=== PATIENT | male | born 1965 | race Hispanic/Latino ===

== ENCOUNTER 2017-09-17 10:22 | Inpatient (IN) | payer OTHER ==
[~2017-09-17] VITALS: Ht 182.9 cm; Wt 104.1 kg
[~2017-09-17 10:22] MED LIST: ACET1TAB25 PO; AMLO10TA2 PO; ATOR10TA69 PO; BUME2TAB18 PO; CARV6.25 PO; CHOL100046 PO; CLIN300C9 PO; FLUT9.9S NS; GLIP5TAB11 PO; INSU100I26 SQ; INSU3INS5 SQ; ISOS30TA6 PO; PRAS10TA6 PO; PREG50 PO; TAMS0.4C32 PO; VIT1CAPS12 PO; VIT1TABL66 PO; VIT1TABL75 PO
[2017-09-17 10:46] LABS: BASOPHILS % (AUTO) 1.1 % (0.0-5.0); EOSINOPHILS % (AUTO) 1.1 % (0.0-8.0); HEMATOCRIT 36.8 % (42-54); MEAN CORPUSCULAR HEMOGLOBIN 26.4 pg (27.0-33.0); MEAN CORPUSCULAR HGB CONC 33.3 g/dL (32.0-36.0); MEAN CORPUSCULAR VOLUME 79.2 fL (79-99); MONOCYTES % (AUTO) 8.4 % (3.0-13.0); NEUTROPHILS % (AUTO) 83.4 % (40.0-77.0); PLATELET COUNT (AUTO) 243 K/uL (130-400); RED BLOOD CELL COUNT(AUTO) 4.64 MIL/uL (4.50-6.20); RED CELL DISTRIBUTION WIDTH 14.7 % (11.0-15.5); WHITE BLOOD COUNT (AUTO) 18.1 K/uL (4.8-10.8)
[2017-09-17 10:54] LABS: CREATININE 3.3 mg/dL (0.5-1.5); POTASSIUM 5.1 mmol/L (3.5-5.1)
[2017-09-17 11:09] LABS: ALBUMIN 3.1 g/dL (3.5-5.0); BILIRUBIN,TOTAL 0.6 mg/dL (0.2-1.0); CREATINE KINASE MB 3.8 ng/mL (0.5-3.6)
[2017-09-17 11:46] LABS: APPEARANCE,URINE Clear (CLEAR); BILIRUBIN,URINE Negative (NEGATIVE); COLOR,URINE Yellow (YELLOW); GLUCOSE, URINE (UA) >=1000 mg/dL (NEGATIVE); KETONES,URINE Negative (NEGATIVE); LEUKOCYTE ESTERASE ,URINE Negative (NEGATIVE); NITRATE,URINE Negative (NEGATIVE); OCCULT BLOOD,URINE Small (NEGATIVE); PROTEIN,URINE 300 (NEGATIVE); UROBILINOGEN,URINE 0.2 mg/dL (0.2-1.0)
[2017-09-17 12:04] LABS: BACTERIA,URINE Rare /HPF (None Seen); SQUAMOUS EPITHELIAL CELL,UR 0-2 /LPF (0-2)
[2017-09-17 12:06] LABS: WBC,URINE 0-1 /HPF (0-1)
[2017-09-17 12:40] LABS: INR 1.05 (0.85-1.15); PARTIAL THROMBOPLASTIN TIME 26.2 SEC (26.3-35.5)
[2017-09-17 13:50] VITALS: BP 141/97
[2017-09-17] MEDS ORDERED: GLIP5TAB11 PO (14:19)
[2017-09-17] MEDS ORDERED: ASPI-555 PO (14:21)
[2017-09-17] MEDS ORDERED: HYDR-4153 PO (14:26)
[2017-09-17] MEDS ORDERED: CHOL500050 PO (14:27)
[2017-09-17] MEDS ORDERED: INSU200I4 SQ (14:32)
[2017-09-17] MEDS ORDERED: RANO500T2 PO (14:33)
[2017-09-17] MEDS ORDERED: METO5TAB7 PO (14:34)
[2017-09-17 16:00] VITALS: BP 146/97
[2017-09-17 18:58] LABS: CREATINE KINASE MB 3.3 ng/mL (0.5-3.6); TROPONIN I 0.2 ng/mL (0.00-0.06)
[2017-09-17] MEDS ORDERED: ONDANSETRON HCL 4 MG/2 ML VIAL IVP PRN (19:45)
[2017-09-17] MEDS ORDERED: LACTULOSE 20 GM/30 ML UDCUP PO PRN (19:45)
[2017-09-17] MEDS ORDERED: ACETAMINOPHEN 325 MG TAB PO PRN ×2 (19:45)
[2017-09-17] MEDS ORDERED: GUAIFENESIN-DM 200/20 MG 10 ML PO PRN (19:45)
[2017-09-17] MEDS ORDERED: MORPHINE SULFATE 2 MG/ML 1ML SYG IVP PRN (19:45)
[2017-09-17] MEDS ORDERED: NITROGLYCERIN 0.4 MG SL TAB SL PRN (19:45)
[2017-09-17] MEDS ORDERED: MAG HYDROX/AL HYDROX/SIMETH ES 30 ML SUSP UDCUP PO PRN (19:45)
[2017-09-17 19:50] VITALS: BP 162/92
[2017-09-17] MEDS ORDERED: FUROSEMIDE 10 MG/ML 4ML VIAL IV SCH ×2 (20:45→21:00)
[2017-09-17] MEDS ORDERED: METOPROLOL TARTRATE 25 MG TAB PO SCH (21:00)
[2017-09-17] MEDS: INSULIN HUMULIN R 100 UNIT/ML 3ML SQ SCH (21:02)
[2017-09-17] MEDS: NITROGLYCERIN 1GM/1 INCH PACKET TD SCH (21:03)
[2017-09-18] VITALS: BP 132/72
[2017-09-18 03:55] LABS: HEMOGLOBIN A1C 9.8 % (4.0-6.0)
[2017-09-18 03:58] LABS: HEMATOCRIT 32.4 % (42-54); MEAN CORPUSCULAR HEMOGLOBIN 27.1 pg (27.0-33.0); MEAN CORPUSCULAR HGB CONC 33.9 g/dL (32.0-36.0); MEAN CORPUSCULAR VOLUME 79.8 fL (79-99); PLATELET COUNT (AUTO) 223 K/uL (130-400); RED BLOOD CELL COUNT(AUTO) 4.06 MIL/uL (4.50-6.20); RED CELL DISTRIBUTION WIDTH 14.8 % (11.0-15.5); WHITE BLOOD COUNT (AUTO) 13.7 K/uL (4.8-10.8)
[2017-09-18 04:00] VITALS: BP 149/90
[2017-09-18 04:11] LABS: CREATINE KINASE MB 2.6 ng/mL (0.5-3.6); CREATININE 3.4 mg/dL (0.5-1.5); POTASSIUM 4.1 mmol/L (3.5-5.1); THYROID STIMULATING HORMONE 2.64 uIU/mL (0.36-3.74); TROPONIN I 0.26 ng/mL (0.00-0.06)
[2017-09-18 04:13] LABS: B-TYPE NATRIURETIC PEPTIDE 716 pg/mL (0-100)
[2017-09-18] MEDS: NITROGLYCERIN 1GM/1 INCH PACKET TD SCH ×3 (05:05→22:20)
[2017-09-18] MEDS: INSULIN HUMULIN R 100 UNIT/ML 3ML SQ SCH ×4 (06:26→22:24)
[2017-09-18 07:43] VITALS: BP 138/73
[2017-09-18] MEDS ORDERED: FUROSEMIDE 10 MG/ML 4ML VIAL IV SCH ×2 (08:00→09:00)
[2017-09-18] MEDS ORDERED: ASPIRIN 325 MG TABLET PO SCH (09:00)
[2017-09-18] MEDS: PANTOPRAZOLE SODIUM 40 MG TABLET.DR PO SCH (09:42)
[2017-09-18] MEDS: ENOXAPARIN SODIUM 30 MG/0.3 ML SQ SCH (09:43)
[2017-09-18] MEDS: FUROSEMIDE 10 MG/ML 4ML VIAL IV SCH ×2 (09:53→16:50)
[2017-09-18 11:49] VITALS: BP 160/91
[2017-09-18] MEDS: PREGABALIN 25 MG CAP PO SCH ×2 (14:09→22:17)
[2017-09-18 16:00] VITALS: BP 145/85
[2017-09-18 20:00] VITALS: BP 148/97
[2017-09-18] MEDS ORDERED: ATORVASTATIN CALCIUM 10 MG TABLET PO SCH (21:00)
[2017-09-18] MEDS: RANOLAZINE 500 MG TAB.SR.12H PO SCH (22:17)
[2017-09-18] MEDS: TAMSULOSIN HCL 0.4 MG CAP.ER.24H PO SCH (22:17)
[2017-09-18] MEDS: CARVEDILOL 6.25 MG TABLET PO SCH (22:21)
[2017-09-18] MEDS: HYDRALAZINE HCL 25 MG TABLET PO SCH (22:21)
[2017-09-19 00:21] VITALS: BP 149/93
[2017-09-19 04:10] VITALS: BP 140/80
[2017-09-19] MEDS: NITROGLYCERIN 1GM/1 INCH PACKET TD SCH ×2 (04:15→14:17)
[2017-09-19] MEDS: FUROSEMIDE 10 MG/ML 4ML VIAL IV SCH ×2 (04:31→09:45)
[2017-09-19 04:55] LABS: HEMATOCRIT 32.6 % (42-54); MEAN CORPUSCULAR HEMOGLOBIN 27.2 pg (27.0-33.0); MEAN CORPUSCULAR HGB CONC 34.5 g/dL (32.0-36.0); MEAN CORPUSCULAR VOLUME 78.7 fL (79-99); PLATELET COUNT (AUTO) 235 K/uL (130-400); RED BLOOD CELL COUNT(AUTO) 4.14 MIL/uL (4.50-6.20); RED CELL DISTRIBUTION WIDTH 14.5 % (11.0-15.5); WHITE BLOOD COUNT (AUTO) 11.7 K/uL (4.8-10.8)
[2017-09-19 05:10] LABS: CREATININE 3.8 mg/dL (0.5-1.5); POTASSIUM 3.9 mmol/L (3.5-5.1)
[2017-09-19 05:20] LABS: B-TYPE NATRIURETIC PEPTIDE 259 pg/mL (0-100)
[2017-09-19] MEDS: INSULIN HUMULIN R 100 UNIT/ML 3ML SQ SCH ×2 (06:27→11:34)
[2017-09-19 07:00] VITALS: BP 108/67
[2017-09-19] MEDS ORDERED: CLOPIDOGREL BISULFATE 75 MG TAB PO SCH (09:00)
[2017-09-19] MEDS ORDERED: METOLAZONE 2.5 MG TABLET PO SCH (09:00)
[2017-09-19] MEDS ORDERED: [UNRECOGNIZED DRUG - OTHER] PO SCH (09:00)
[2017-09-19] MEDS ORDERED: AMLODIPINE BESYLATE 5 MG TAB PO SCH (09:00)
[2017-09-19] MEDS ORDERED: ASPIRIN 81 MG EC TAB PO SCH (09:00)
[2017-09-19] MEDS ORDERED: PRASUGREL HCL 10 MG TABLET PO SCH (09:00)
[2017-09-19] MEDS ORDERED: [UNRECOGNIZED DRUG - OTHER] PO SCH (09:00)
[2017-09-19] MEDS ORDERED: TRESIBA U PO SCH (09:00)
[2017-09-19] MEDS ORDERED: GLIPIZIDE 5 MG TABLET PO SCH (09:00)
[2017-09-19] MEDS: RANOLAZINE 500 MG TAB.SR.12H PO SCH (10:51)
[2017-09-19] MEDS: TAMSULOSIN HCL 0.4 MG CAP.ER.24H PO SCH (10:51)
[2017-09-19] MEDS: FUROSEMIDE 40 MG TABLET PO SCH ×2 (10:52→17:00)
[2017-09-19] MEDS: CARVEDILOL 6.25 MG TABLET PO SCH (10:52)
[2017-09-19] MEDS: PANTOPRAZOLE SODIUM 40 MG TABLET.DR PO SCH (10:52)
[2017-09-19] MEDS: PREGABALIN 25 MG CAP PO SCH ×2 (10:53→14:17)
[2017-09-19] MEDS: ENOXAPARIN SODIUM 30 MG/0.3 ML SQ SCH (10:53)
[2017-09-19] MEDS: HYDRALAZINE HCL 25 MG TABLET PO SCH (10:54)
[2017-09-19 11:00] VITALS: BP 132/82
[2017-09-19] MEDS ORDERED: FURO40TA7 PO (14:44)
[2017-09-19] MEDS ORDERED: HYDR-4153 PO (14:44)
[2017-09-19] MEDS ORDERED: CARV6.25 PO (14:44)
[2017-09-19] MEDS ORDERED: ATOR10TA69 PO (14:44)
[2017-09-19] MEDS ORDERED: METO5TAB7 PO (14:44)
[2017-09-19] MEDS ORDERED: RANO500T2 PO (14:44)
[2017-09-19] MEDS ORDERED: AMLO10TA2 PO (14:44)
[2017-09-19] MEDS ORDERED: CLOP75TA14 PO (14:44)
[2017-09-19 16:00] VITALS: BP 133/89
[2017-09-25] MEDS ORDERED: ERGOCALCIFEROL (VITAMIN D2) 50,000 UNIT CAPSULE PO SCH (09:00)
== END 2017-09-19 17:20 | disposition home or self-care (01) | DRG 291 ==
LOC: EDH 10:22 → EDHIP 10:23 → OBSVTOIN 10:23 → 2AH 13:29
PROVIDERS: ADMIT Family Medicine; ATTEND Family Medicine
DX: I13.0 Hypertensive heart and chronic kidney disease with heart failure and stage 1 through stage 4 chronic kidney disease, or unspecified chronic kidney disease (principal); I50.43 Acute on chronic combined systolic (congestive) and diastolic (congestive) heart failure; E11.21 Type 2 diabetes mellitus with diabetic nephropathy; E11.51 Type 2 diabetes mellitus with diabetic peripheral angiopathy without gangrene; N18.4 Chronic kidney disease, stage 4 (severe); I25.10 Atherosclerotic heart disease of native coronary artery without angina pectoris; E78.5 Hyperlipidemia, unspecified; D64.9 Anemia, unspecified; E11.22 Type 2 diabetes mellitus with diabetic chronic kidney disease; I25.5 Ischemic cardiomyopathy; E11.65 Type 2 diabetes mellitus with hyperglycemia; Z95.810 Presence of automatic (implantable) cardiac defibrillator; I25.2 Old myocardial infarction; Z95.1 Presence of aortocoronary bypass graft; Z90.49 Acquired absence of other specified parts of digestive tract; Z91.14 Patient's other noncompliance with medication regimen
CPT/HCPCS: 36415; 71010; 80048; 80053; 81001; 82550; 82553; 82948; 83036; 83874; 83880; 84443; 84484; 85025; 85027; 85610; 85730; 93005; 99291; J1650; J1815; J1940; J3490

== ENCOUNTER 2018-06-21 17:56 | Inpatient (IN) | payer OTHER ==
[~2018-06-21] VITALS: Ht 180.3 cm; Wt 101.5 kg
[~2018-06-21 17:56] MED LIST changes: -AMLO10TA2 PO; +AMLO10TA6 PO; +ASPI-555 PO; -BUME2TAB18 PO; -CHOL100046 PO; +CHOL500050 PO; -CLIN300C9 PO; +CLOP75TA14 PO; -FLUT9.9S NS; +FURO40TA7 PO; +HYDR-4153 PO; -INSU100I26 SQ; +INSU200I4 SQ; -ISOS30TA6 PO; +METO5TAB7 PO; -PRAS10TA6 PO; +RANO500T2 PO; -VIT1TABL66 PO
[2018-06-21 18:25] LABS: BASOPHILS % (AUTO) 0.5 % (0.0-5.0); EOSINOPHILS % (AUTO) 1.5 % (0.0-8.0); HEMATOCRIT 34.2 % (42-54); LYMPHOCYTES % (AUTO) 9.9 % (21.0-51.0); MEAN CORPUSCULAR HEMOGLOBIN 27.6 pg (27.0-33.0); MEAN CORPUSCULAR HGB CONC 33.7 g/dL (32.0-36.0); MONOCYTES % (AUTO) 6.3 % (3.0-13.0); NEUTROPHILS % (AUTO) 81.8 % (40.0-77.0); PLATELET COUNT (AUTO) 206 K/uL (130-400); RED BLOOD CELL COUNT(AUTO) 4.17 MIL/uL (4.50-6.20); RED CELL DISTRIBUTION WIDTH 15.4 % (11.0-15.5); WHITE BLOOD COUNT (AUTO) 9.9 K/uL (4.8-10.8)
[2018-06-21] MEDS ORDERED: ASPIRIN 325 MG TABLET ONE (18:33)
[2018-06-21 18:40] LABS: INR 1.07 (0.85-1.15); PARTIAL THROMBOPLASTIN TIME 27.5 SEC (26.3-35.5); PROTHROMBIN TIME 11.2 SEC (9.6-11.6)
[2018-06-21 18:50] LABS: ALBUMIN 3.3 g/dL (3.5-5.0); BILIRUBIN,TOTAL 0.3 mg/dL (0.2-1.0); CREATININE 5.3 mg/dL (0.5-1.5); POTASSIUM 3.9 mmol/L (3.5-5.1); TOTAL PROTEIN, SERUM 8.2 g/dL (6.0-8.3)
[2018-06-21 18:58] LABS: B-TYPE NATRIURETIC PEPTIDE 390 pg/mL (0-100)
[2018-06-21] MEDS ORDERED: ENOXAPARIN SODIUM 100 MG/1 ML SQ ONE (19:28)
[2018-06-21] MEDS ORDERED: MORPHINE SULFATE 2 MG/ML 1ML SYG IV PRN (21:30)
[2018-06-21] MEDS ORDERED: NITROGLYCERIN 0.4 MG SL TAB SL PRN (21:30)
[2018-06-21] MEDS ORDERED: GLUCAGON 1MG KIT 1 MG ML IM PRN (21:30)
[2018-06-21] MEDS ORDERED: DEXTROSE 50%-WATER 50 ML DISP.SYRIN IV PRN (21:30)
[2018-06-21] MEDS ORDERED: MORPHINE SULFATE 4 MG/1ML SYG IV PRN (21:30)
[2018-06-21 22:46] VITALS: BP 138/84
[2018-06-22 00:49] LABS: MYOGLOBIN 563 ng/mL (10-92)
[2018-06-22 00:52] LABS: CREATINE KINASE, TOTAL 419 U/L (21-232)
[2018-06-22 03:50] VITALS: BP 142/64
[2018-06-22] MEDS: SODIUM CHLORIDE 0.9% 1000ML 1,000 ML IV SCH ×2 (04:22→07:24)
[2018-06-22] MEDS: INSULIN HUMULIN R 100 UNIT/ML 3ML SQ SCH ×4 (06:05→21:54)
[2018-06-22 06:23] LABS: BASOPHILS % (AUTO) 0.8 % (0.0-5.0); EOSINOPHILS % (AUTO) 2.7 % (0.0-8.0); HEMATOCRIT 35.2 % (42-54); LYMPHOCYTES % (AUTO) 17.9 % (21.0-51.0); MEAN CORPUSCULAR HEMOGLOBIN 27.8 pg (27.0-33.0); MEAN CORPUSCULAR HGB CONC 33.7 g/dL (32.0-36.0); MEAN CORPUSCULAR VOLUME 82.4 fL (79-99); MONOCYTES % (AUTO) 10.3 % (3.0-13.0); NEUTROPHILS % (AUTO) 68.3 % (40.0-77.0); PLATELET COUNT (AUTO) 233 K/uL (130-400); RED BLOOD CELL COUNT(AUTO) 4.27 MIL/uL (4.50-6.20); RED CELL DISTRIBUTION WIDTH 15.3 % (11.0-15.5); WHITE BLOOD COUNT (AUTO) 11.7 K/uL (4.8-10.8)
[2018-06-22 06:31] LABS: HEMOGLOBIN A1C 9.1 % (4.0-6.0)
[2018-06-22 06:59] LABS: B-TYPE NATRIURETIC PEPTIDE 435 pg/mL (0-100)
[2018-06-22 07:01] LABS: ALBUMIN 3.3 g/dL (3.5-5.0); BILIRUBIN,TOTAL 0.3 mg/dL (0.2-1.0); CREATININE 5.1 mg/dL (0.5-1.5); MAGNESIUM 2.1 mg/dL (1.80-2.40); POTASSIUM 3.8 mmol/L (3.5-5.1); TOTAL PROTEIN, SERUM 8.3 g/dL (6.0-8.3)
[2018-06-22 07:05] LABS: TROPONIN I 3.56 ng/mL (0.00-0.06)
[2018-06-22 08:17] VITALS: BP 142/82
[2018-06-22] MEDS ORDERED: METOPROLOL TARTRATE 25 MG TAB PO SCH (09:00)
[2018-06-22] MEDS ORDERED: ENOXAPARIN SODIUM 40 MG/0.4 ML SYRINGE SQ SCH ×2 (09:00)
[2018-06-22] MEDS: ASPIRIN 81MG TAB.CHEW PO SCH (09:08)
[2018-06-22] MEDS: PANTOPRAZOLE SODIUM 40 MG TABLET.DR PO SCH (09:08)
[2018-06-22] MEDS: FUROSEMIDE 10 MG/ML 4ML VIAL IVP SCH ×2 (09:09→21:38)
[2018-06-22] MEDS ORDERED: ENOXAPARIN SODIUM 100 MG/1 ML SQ SCH (09:09)
[2018-06-22] MEDS ORDERED: CARV12.511 PO (09:31)
[2018-06-22] MEDS ORDERED: CALC0.253 PO (09:31)
[2018-06-22] MEDS ORDERED: ATOR-2 PO (09:31)
[2018-06-22] MEDS ORDERED: METO5TAB7 PO (09:31)
[2018-06-22] MEDS ORDERED: ISOS30TA6 PO (09:31)
[2018-06-22] MEDS ORDERED: CHOL100040 PO (09:31)
[2018-06-22] MEDS ORDERED: VITA400C70 PO (09:31)
[2018-06-22] MEDS ORDERED: BUME2TAB18 PO (09:31)
[2018-06-22] MEDS ORDERED: CALC667C10 PO (09:31)
[2018-06-22] MEDS ORDERED: VIT-7 PO (09:31)
[2018-06-22] MEDS ORDERED: FERS325 PO (10:05)
[2018-06-22] MEDS ORDERED: PREG150C PO (10:06)
[2018-06-22] MEDS ORDERED: INSU100I32 SQ (10:10)
[2018-06-22] MEDS ORDERED: CLOPIDOGREL BISULFATE 300 MG TAB PO SCH (11:30)
[2018-06-22] MEDS: CARVEDILOL 12.5 MG TABLET PO SCH ×2 (11:53→21:38)
[2018-06-22] MEDS ORDERED: INSU3INS5 SQ (11:55)
[2018-06-22 11:58] VITALS: BP 139/79
[2018-06-22 16:00] VITALS: BP 131/85
[2018-06-22 19:29] VITALS: BP 146/93
[2018-06-22] MEDS: ACETAMINOPHEN 325 MG TAB PO PRN (21:40)
[2018-06-22 23:27] VITALS: BP 162/96
[2018-06-23] VITALS (13 sets, daily range): BP systolic 135–160; BP diastolic 83–101
[2018-06-23] MEDS: ONDANSETRON HCL MDV 20ML 2 MG/ML VIAL IV PRN (00:37)
[2018-06-23 03:40] LABS: HEMATOCRIT 32.6 % (42-54); MEAN CORPUSCULAR HEMOGLOBIN 27.8 pg (27.0-33.0); MEAN CORPUSCULAR HGB CONC 34.2 g/dL (32.0-36.0); MEAN CORPUSCULAR VOLUME 81.3 fL (79-99); PLATELET COUNT (AUTO) 209 K/uL (130-400); RED BLOOD CELL COUNT(AUTO) 4.01 MIL/uL (4.50-6.20); RED CELL DISTRIBUTION WIDTH 15.1 % (11.0-15.5); WHITE BLOOD COUNT (AUTO) 10.1 K/uL (4.8-10.8)
[2018-06-23 03:48] LABS: INR 1.07 (0.85-1.15); PROTHROMBIN TIME 11.2 SEC (9.6-11.6)
[2018-06-23 03:55] LABS: CREATININE 5.2 mg/dL (0.5-1.5); POTASSIUM 3.9 mmol/L (3.5-5.1)
[2018-06-23 03:57] LABS: URIC ACID 13.8 mg/dL (2.6-7.2)
[2018-06-23] MEDS: INSULIN HUMULIN R 100 UNIT/ML 3ML SQ SCH ×4 (07:30→22:43)
[2018-06-23] MEDS: FOLIC ACID/VITAMIN B COMP W-C 1 MG CAPSULE PO SCH (08:13)
[2018-06-23] MEDS: ENOXAPARIN SODIUM 100 MG/1 ML SQ SCH (08:13)
[2018-06-23] MEDS: CARVEDILOL 12.5 MG TABLET PO SCH ×2 (08:25→22:33)
[2018-06-23] MEDS: ASPIRIN 81MG TAB.CHEW PO SCH (08:26)
[2018-06-23] MEDS: CLOPIDOGREL BISULFATE 75 MG TAB PO SCH (08:26)
[2018-06-23] MEDS: PANTOPRAZOLE SODIUM 40 MG TABLET.DR PO SCH (09:55)
[2018-06-23] MEDS: FUROSEMIDE 10 MG/ML 4ML VIAL IVP SCH ×2 (09:55→22:34)
[2018-06-23] MEDS ORDERED: LIDOCAINE HCL 1% MDV 50ML VIAL ONE (16:02)
[2018-06-23] MEDS ORDERED: HEPARIN SODIUM 5000UNIT/ML 1ML VIAL IJ PRN (17:45)
[2018-06-23] MEDS ORDERED: ALBUMIN (HUMAN) 25% 100 ML IV PRN (17:45)
[2018-06-23] MEDS ORDERED: SODIUM CHLORIDE 0.9% 1000ML 1,000 ML IV PRN (17:45)
[2018-06-23] MEDS ORDERED: 0.9% SODIUM CHLORIDE 250 ML IV BAG IV PRN (17:45)
[2018-06-23 17:54] LABS: ALBUMIN 3.3 g/dL (3.5-5.0)
[2018-06-23] MEDS: ROPINIROLE HCL 1 MG TABLET PO SCH (21:00)
[2018-06-23] MEDS: ACETAMINOPHEN 325 MG TAB PO PRN (22:33)
[2018-06-24] MEDS ORDERED: PREGABALIN 75 MG CAPSULE ONE ×2 (00:27→22:23)
[2018-06-24] MEDS: DIAZEPAM 5 MG TABLET PO PRN ×2 (00:29→22:31)
[2018-06-24] MEDS: PREGABALIN 100 MG CAPSULE PO SCH ×2 (00:31→22:33)
[2018-06-24 03:44] LABS: HEMATOCRIT 36.3 % (42-54); MEAN CORPUSCULAR HEMOGLOBIN 28.2 pg (27.0-33.0); MEAN CORPUSCULAR HGB CONC 34.7 g/dL (32.0-36.0); MEAN CORPUSCULAR VOLUME 81.4 fL (79-99); PLATELET COUNT (AUTO) 244 K/uL (130-400); RED BLOOD CELL COUNT(AUTO) 4.46 MIL/uL (4.50-6.20); RED CELL DISTRIBUTION WIDTH 15.3 % (11.0-15.5); WHITE BLOOD COUNT (AUTO) 10.8 K/uL (4.8-10.8)
[2018-06-24 03:55] LABS: CREATININE 4.6 mg/dL (0.5-1.5); POTASSIUM 3.7 mmol/L (3.5-5.1)
[2018-06-24 04:12] VITALS: BP 115/80
[2018-06-24] MEDS: INSULIN HUMULIN R 100 UNIT/ML 3ML SQ SCH ×4 (06:25→22:50)
[2018-06-24 07:00] VITALS: BP 124/86
[2018-06-24] MEDS: CARVEDILOL 12.5 MG TABLET PO SCH ×2 (08:29→22:31)
[2018-06-24] MEDS: ASPIRIN 81MG TAB.CHEW PO SCH (08:29)
[2018-06-24] MEDS: CLOPIDOGREL BISULFATE 75 MG TAB PO SCH (08:29)
[2018-06-24] MEDS: FOLIC ACID/VITAMIN B COMP W-C 1 MG CAPSULE PO SCH (08:29)
[2018-06-24] MEDS: ENOXAPARIN SODIUM 100 MG/1 ML SQ SCH (08:30)
[2018-06-24] MEDS: PANTOPRAZOLE SODIUM 40 MG TABLET.DR PO SCH (08:30)
[2018-06-24] MEDS: FUROSEMIDE 10 MG/ML 4ML VIAL IVP SCH ×2 (08:30→22:31)
[2018-06-24 11:00] VITALS: BP 123/81
[2018-06-24 16:00] VITALS: BP 126/97
[2018-06-24] MEDS ORDERED: DESMOPRESSIN ACETATE IJ SCH (20:00)
[2018-06-24] MEDS ORDERED: SODIUM CHLORIDE 0.9% IJ SCH (20:00)
[2018-06-24 20:10] VITALS: BP 126/76
[2018-06-24] MEDS: ROPINIROLE HCL 1 MG TABLET PO SCH (22:34)
[2018-06-24] MEDS: INSULIN GLARGINE 100 UNITS/ML 10 ML VIAL SQ SCH (22:49)
[2018-06-24 23:36] VITALS: BP 129/86
[2018-06-25 03:57] VITALS: BP 130/82
[2018-06-25 03:58] LABS: HEMATOCRIT 35.4 % (42-54); MEAN CORPUSCULAR HEMOGLOBIN 27.5 pg (27.0-33.0); MEAN CORPUSCULAR HGB CONC 33.7 g/dL (32.0-36.0); MEAN CORPUSCULAR VOLUME 81.5 fL (79-99); NUCLEATED RED BLOOD CELLS 0.1 % (0.0-0.19); PLATELET COUNT (AUTO) 207 K/uL (130-400); RED BLOOD CELL COUNT(AUTO) 4.35 MIL/uL (4.50-6.20); RED CELL DISTRIBUTION WIDTH 15.4 % (11.0-15.5); WHITE BLOOD COUNT (AUTO) 13.4 K/uL (4.8-10.8)
[2018-06-25 04:08] LABS: CREATININE 4.9 mg/dL (0.5-1.5); POTASSIUM 3.7 mmol/L (3.5-5.1)
[2018-06-25] MEDS: INSULIN HUMULIN R 100 UNIT/ML 3ML SQ SCH ×4 (06:55→21:48)
[2018-06-25 07:00] VITALS: BP 109/66
[2018-06-25] MEDS: FOLIC ACID/VITAMIN B COMP W-C 1 MG CAPSULE PO SCH (07:38)
[2018-06-25] MEDS: CLOPIDOGREL BISULFATE 75 MG TAB PO SCH (07:38)
[2018-06-25] MEDS: CARVEDILOL 12.5 MG TABLET PO SCH ×2 (07:38→20:49)
[2018-06-25] MEDS: ASPIRIN 81MG TAB.CHEW PO SCH (07:38)
[2018-06-25] MEDS: PANTOPRAZOLE SODIUM 40 MG TABLET.DR PO SCH (07:38)
[2018-06-25] MEDS: FUROSEMIDE 10 MG/ML 4ML VIAL IVP SCH (07:39)
[2018-06-25] MEDS: ENOXAPARIN SODIUM 100 MG/1 ML SQ SCH (08:06)
[2018-06-25 08:22] LABS: HEPATITIS Bs ANTIGEN SCREEN P Negative (Negative)
[2018-06-25] MEDS: FUROSEMIDE 40 MG TABLET PO SCH ×2 (08:39→15:58)
[2018-06-25] MEDS ORDERED: LACTULOSE 20 GM/30 ML UDCUP PO SCH (10:15)
[2018-06-25] MEDS ORDERED: DIAZEPAM 5 MG TABLET PO PRN (10:15)
[2018-06-25] MEDS: LINAGLIPTIN 5 MG TABLET PO SCH (10:15)
[2018-06-25 11:00] VITALS: BP 115/68
[2018-06-25] MEDS ORDERED: INSULIN LISPRO 100 UNIT/ML 3ML SQ SCH (11:30)
[2018-06-25] MEDS: ONDANSETRON HCL MDV 20ML 2 MG/ML VIAL IV PRN (13:52)
[2018-06-25] MEDS: GLIPIZIDE 5 MG TABLET PO SCH (15:58)
[2018-06-25 16:00] VITALS: BP 111/54
[2018-06-25 20:00] VITALS: BP 119/84
[2018-06-25] MEDS: ROPINIROLE HCL 0.25 MG TABLET PO SCH (20:48)
[2018-06-25] MEDS: ATORVASTATIN CALCIUM 40 MG TABLET PO SCH (20:48)
[2018-06-25] MEDS: BISACODYL 5 MG TABLET.DR PO SCH (20:49)
[2018-06-25] MEDS: INSULIN GLARGINE 100 UNITS/ML 10 ML VIAL SQ SCH (20:50)
[2018-06-25] MEDS ORDERED: PREGABALIN 75 MG CAPSULE PO SCH (21:00)
[2018-06-25 23:00] VITALS: BP_SYST 109; BP_SYST 135; BP_DIAS 67; BP_DIAS 89
[2018-06-26] VITALS (8 sets, daily range): BP systolic 122–154; BP diastolic 74–102
[2018-06-26 04:01] LABS: HEMATOCRIT 33.8 % (42-54); MEAN CORPUSCULAR HEMOGLOBIN 28.2 pg (27.0-33.0); MEAN CORPUSCULAR HGB CONC 34.4 g/dL (32.0-36.0); MEAN CORPUSCULAR VOLUME 81.9 fL (79-99); PLATELET COUNT (AUTO) 199 K/uL (130-400); RED BLOOD CELL COUNT(AUTO) 4.13 MIL/uL (4.50-6.20); RED CELL DISTRIBUTION WIDTH 15.2 % (11.0-15.5); WHITE BLOOD COUNT (AUTO) 10.8 K/uL (4.8-10.8)
[2018-06-26 04:07] LABS: CREATININE 4.8 mg/dL (0.5-1.5); POTASSIUM 3.8 mmol/L (3.5-5.1)
[2018-06-26 04:09] LABS: INR 1.05 (0.85-1.15); PARTIAL THROMBOPLASTIN TIME 27.1 SEC (26.3-35.5)
[2018-06-26] MEDS: GLIPIZIDE 5 MG TABLET PO SCH (06:27)
[2018-06-26] MEDS: INSULIN HUMULIN R 100 UNIT/ML 3ML SQ SCH ×3 (06:27→23:10)
[2018-06-26] MEDS: FOLIC ACID/VITAMIN B COMP W-C 1 MG CAPSULE PO SCH (09:00)
[2018-06-26] MEDS: BISACODYL 5 MG TABLET.DR PO SCH ×2 (09:00→23:05)
[2018-06-26] MEDS: ASPIRIN 81MG TAB.CHEW PO SCH (09:00)
[2018-06-26] MEDS: LINAGLIPTIN 5 MG TABLET PO SCH (09:00)
[2018-06-26] MEDS: ENOXAPARIN SODIUM 100 MG/1 ML SQ SCH (09:00)
[2018-06-26] MEDS: CLOPIDOGREL BISULFATE 75 MG TAB PO SCH (09:00)
[2018-06-26] MEDS: CARVEDILOL 12.5 MG TABLET PO SCH ×2 (10:43→23:06)
[2018-06-26] MEDS: PANTOPRAZOLE SODIUM 40 MG TABLET.DR PO SCH (10:43)
[2018-06-26] MEDS: FUROSEMIDE 40 MG TABLET PO SCH (10:43)
[2018-06-26] MEDS ORDERED: NITROGLYCERIN 5 MG/ML 10 ML VIAL IV ONE (11:13)
[2018-06-26] MEDS ORDERED: IOHEXOL-350 50ML VIAL IV ONE (11:13)
[2018-06-26] MEDS ORDERED: LIDOCAINE HCL-MPF 2% 5ML VIAL ONE (11:13)
[2018-06-26] MEDS ORDERED: IOHEXOL 350 MG/ML 100ML INFUS..BTL IV ONE ×5 (11:13→16:11)
[2018-06-26] MEDS ORDERED: MIDAZOLAM HCL 1 MG/ML 2ML VIAL ONE (13:22)
[2018-06-26] MEDS ORDERED: FENTANYL CITRATE PF 50 MCG/1 ML 2ML VIAL ONE ×2 (13:27→14:10)
[2018-06-26] MEDS ORDERED: BIVALIRUDIN 250 MG/VIAL IV ONE (13:41)
[2018-06-26] MEDS ORDERED: EPTIFIBATIDE 2 MG/ML 10 ML VIAL IVP ONE (13:58)
[2018-06-26] MEDS ORDERED: EPTIFIBATIDE 75MG/100ML BOTTLE 100 ML IV ONE (13:58)
[2018-06-26] MEDS ORDERED: HEPARIN SODIUM 1000UNIT/ML 10ML VIAL ONE (13:59)
[2018-06-26] MEDS ORDERED: KETAMINE 50MG/ML SYRINGE 50 MG/ML DISP.SYRIN IV ONE (14:48)
[2018-06-26] MEDS ORDERED: PROPOFOL 10 MG/ML 20ML VIAL IV ONE ×2 (14:49→16:59)
[2018-06-26] MEDS ORDERED: HEPARIN 25000 UNITS/250 ML D5W 250 ML IV ONE (16:34)
[2018-06-26] MEDS ORDERED: ASPIRIN 81MG TAB.CHEW ONE (17:29)
[2018-06-26] MEDS ORDERED: CLOPIDOGREL BISULFATE 300 MG TAB ONE (17:29)
[2018-06-26] MEDS ORDERED: DEXTROSE 50%-WATER 50 ML DISP.SYRIN IV PRN (17:30)
[2018-06-26] MEDS ORDERED: GLUCAGON 1MG KIT 1 MG ML IM PRN (17:30)
[2018-06-26] MEDS ORDERED: PREGABALIN 25 MG CAP PO SCH (21:00)
[2018-06-26] MEDS: ATORVASTATIN CALCIUM 40 MG TABLET PO SCH (23:05)
[2018-06-26] MEDS: ROPINIROLE HCL 0.25 MG TABLET PO SCH (23:06)
[2018-06-26] MEDS: INSULIN GLARGINE 100 UNITS/ML 10 ML VIAL SQ SCH (23:07)
[2018-06-26 23:18] LABS: BASOPHILS % (AUTO) 0.3 % (0.0-5.0); EOSINOPHILS % (AUTO) 0.4 % (0.0-8.0); HEMATOCRIT 32.6 % (42-54); LYMPHOCYTES % (AUTO) 6.7 % (21.0-51.0); MEAN CORPUSCULAR HEMOGLOBIN 28.2 pg (27.0-33.0); MEAN CORPUSCULAR HGB CONC 34.2 g/dL (32.0-36.0); MEAN CORPUSCULAR VOLUME 82.4 fL (79-99); MONOCYTES % (AUTO) 7.5 % (3.0-13.0); NEUTROPHILS % (AUTO) 85.1 % (40.0-77.0); PLATELET COUNT (AUTO) 183 K/uL (130-400); RED BLOOD CELL COUNT(AUTO) 3.96 MIL/uL (4.50-6.20)
[2018-06-27 04:00] VITALS: BP 128/83
[2018-06-27] MEDS: GLIPIZIDE 5 MG TABLET PO SCH ×2 (06:32→16:43)
[2018-06-27] MEDS: HEPARIN 25000 UNITS/250 ML D5W 250 ML IV SCH ×2 (06:33→22:10)
[2018-06-27] MEDS: INSULIN HUMULIN R 100 UNIT/ML 3ML SQ SCH ×4 (06:35→22:13)
[2018-06-27 06:36] LABS: BASOPHILS % (AUTO) 0.8 % (0.0-5.0); EOSINOPHILS % (AUTO) 0.8 % (0.0-8.0); HEMATOCRIT 32.9 % (42-54); LYMPHOCYTES % (AUTO) 9.6 % (21.0-51.0); MEAN CORPUSCULAR HEMOGLOBIN 27.3 pg (27.0-33.0); MEAN CORPUSCULAR HGB CONC 33.3 g/dL (32.0-36.0); MEAN CORPUSCULAR VOLUME 81.8 fL (79-99); MONOCYTES % (AUTO) 11.5 % (3.0-13.0); NEUTROPHILS % (AUTO) 77.3 % (40.0-77.0); PLATELET COUNT (AUTO) 180 K/uL (130-400); RED BLOOD CELL COUNT(AUTO) 4.02 MIL/uL (4.50-6.20); RED CELL DISTRIBUTION WIDTH 15.1 % (11.0-15.5); WHITE BLOOD COUNT (AUTO) 13.7 K/uL (4.8-10.8)
[2018-06-27 06:44] LABS: CREATININE 7.1 mg/dL (0.5-1.5); POTASSIUM 4.5 mmol/L (3.5-5.1)
[2018-06-27 07:00] VITALS: BP 124/83
[2018-06-27] MEDS: ENOXAPARIN SODIUM 100 MG/1 ML SQ SCH (08:44)
[2018-06-27] MEDS: BISACODYL 5 MG TABLET.DR PO SCH ×3 (08:46→22:08)
[2018-06-27] MEDS: FOLIC ACID/VITAMIN B COMP W-C 1 MG CAPSULE PO SCH ×2 (08:46→13:13)
[2018-06-27] MEDS: FUROSEMIDE 40 MG TABLET PO SCH (08:46)
[2018-06-27] MEDS: CARVEDILOL 12.5 MG TABLET PO SCH ×2 (08:46→22:08)
[2018-06-27] MEDS: PANTOPRAZOLE SODIUM 40 MG TABLET.DR PO SCH ×2 (08:46→13:14)
[2018-06-27] MEDS: CLOPIDOGREL BISULFATE 75 MG TAB PO SCH ×2 (08:46→13:14)
[2018-06-27] MEDS: ASPIRIN 325 MG TABLET PO SCH ×2 (08:46→13:14)
[2018-06-27] MEDS: LINAGLIPTIN 5 MG TABLET PO SCH ×2 (08:47→13:13)
[2018-06-27 11:00] VITALS: BP_SYST 103; BP_SYST 135; BP_DIAS 58; BP_DIAS 76
[2018-06-27] MEDS: VITAMIN E 400 UNIT CAPSULE PO SCH (13:14)
[2018-06-27 16:00] VITALS: BP 122/78
[2018-06-27 19:00] VITALS: BP 122/68
[2018-06-27] MEDS ORDERED: DIAZEPAM 5 MG TABLET PO PRN (19:30)
[2018-06-27] MEDS: ROPINIROLE HCL 0.25 MG TABLET PO SCH (22:08)
[2018-06-27] MEDS: ATORVASTATIN CALCIUM 40 MG TABLET PO SCH (22:09)
[2018-06-27] MEDS: INSULIN GLARGINE 100 UNITS/ML 10 ML VIAL SQ SCH (22:11)
[2018-06-27 23:00] VITALS: BP 118/83
[2018-06-28 03:00] VITALS: BP 146/89
[2018-06-28 03:47] LABS: HEMATOCRIT 29.6 % (42-54); MEAN CORPUSCULAR HGB CONC 34.8 g/dL (32.0-36.0); MEAN CORPUSCULAR VOLUME 80.3 fL (79-99); PLATELET COUNT (AUTO) 188 K/uL (130-400); RED BLOOD CELL COUNT(AUTO) 3.68 MIL/uL (4.50-6.20); RED CELL DISTRIBUTION WIDTH 15.4 % (11.0-15.5)
[2018-06-28 04:05] LABS: CREATININE 7.3 mg/dL (0.5-1.5); POTASSIUM 3.7 mmol/L (3.5-5.1)
[2018-06-28] MEDS: INSULIN HUMULIN R 100 UNIT/ML 3ML SQ SCH ×4 (06:19→22:37)
[2018-06-28] MEDS: INSULIN LISPRO 100 UNIT/ML 3ML SQ SCH ×3 (06:21→17:05)
[2018-06-28 07:00] VITALS: BP 117/82
[2018-06-28] MEDS: ENOXAPARIN SODIUM 100 MG/1 ML SQ SCH (07:49)
[2018-06-28] MEDS: VITAMIN E 400 UNIT CAPSULE PO SCH (10:08)
[2018-06-28] MEDS: CARVEDILOL 12.5 MG TABLET PO SCH ×2 (10:08→21:32)
[2018-06-28] MEDS: LINAGLIPTIN 5 MG TABLET PO SCH (10:08)
[2018-06-28] MEDS: CLOPIDOGREL BISULFATE 75 MG TAB PO SCH (10:08)
[2018-06-28] MEDS: PANTOPRAZOLE SODIUM 40 MG TABLET.DR PO SCH (10:08)
[2018-06-28] MEDS: ASPIRIN 325 MG TABLET PO SCH (10:08)
[2018-06-28] MEDS: BISACODYL 5 MG TABLET.DR PO SCH ×2 (10:08→21:31)
[2018-06-28] MEDS: FOLIC ACID/VITAMIN B COMP W-C 1 MG CAPSULE PO SCH (10:08)
[2018-06-28 11:00] VITALS: BP 118/74
[2018-06-28] MEDS: CEPHALEXIN 500 MG CAPSULE PO SCH ×2 (11:51→21:31)
[2018-06-28 16:00] VITALS: BP 120/72
[2018-06-28 20:00] VITALS: BP 109/74
[2018-06-28] MEDS: ATORVASTATIN CALCIUM 40 MG TABLET PO SCH (21:31)
[2018-06-28] MEDS: ROPINIROLE HCL 0.25 MG TABLET PO SCH (21:31)
[2018-06-28] MEDS: INSULIN GLARGINE 100 UNITS/ML 10 ML VIAL SQ SCH (22:38)
[2018-06-28 23:00] VITALS: BP 123/81
[2018-06-29 03:00] VITALS: BP 122/78
[2018-06-29] MEDS: INSULIN LISPRO 100 UNIT/ML 3ML SQ SCH ×3 (06:21→17:21)
[2018-06-29] MEDS: INSULIN HUMULIN R 100 UNIT/ML 3ML SQ SCH ×4 (06:23→21:00)
[2018-06-29 07:50] VITALS: BP 125/82
[2018-06-29] MEDS: PANTOPRAZOLE SODIUM 40 MG TABLET.DR PO SCH (10:19)
[2018-06-29] MEDS: ASPIRIN 325 MG TABLET PO SCH (10:19)
[2018-06-29] MEDS: LINAGLIPTIN 5 MG TABLET PO SCH (10:20)
[2018-06-29] MEDS: FOLIC ACID/VITAMIN B COMP W-C 1 MG CAPSULE PO SCH (10:20)
[2018-06-29] MEDS: VITAMIN E 400 UNIT CAPSULE PO SCH (10:20)
[2018-06-29] MEDS: CARVEDILOL 12.5 MG TABLET PO SCH ×2 (10:21→21:40)
[2018-06-29] MEDS: CLOPIDOGREL BISULFATE 75 MG TAB PO SCH (10:21)
[2018-06-29] MEDS: BISACODYL 5 MG TABLET.DR PO SCH ×2 (10:21→21:00)
[2018-06-29] MEDS: CEPHALEXIN 500 MG CAPSULE PO SCH ×2 (10:21→22:38)
[2018-06-29] MEDS: ENOXAPARIN SODIUM 100 MG/1 ML SQ SCH (10:22)
[2018-06-29 10:56] VITALS: BP 115/73
[2018-06-29 16:27] VITALS: BP 117/73
[2018-06-29] MEDS: ONDANSETRON HCL MDV 20ML 2 MG/ML VIAL IV PRN (17:42)
[2018-06-29 19:58] VITALS: BP 120/63
[2018-06-29] MEDS: ATORVASTATIN CALCIUM 40 MG TABLET PO SCH (21:39)
[2018-06-29] MEDS: ROPINIROLE HCL 0.25 MG TABLET PO SCH (21:40)
[2018-06-29] MEDS: INSULIN GLARGINE 100 UNITS/ML 10 ML VIAL SQ SCH (21:49)
[2018-06-29 23:46] VITALS: BP 127/99
[2018-06-30 03:59] LABS: CREATININE 12.6 mg/dL (0.5-1.5)
[2018-06-30 04:18] LABS: EOSINOPHILS % (AUTO) 19.2 % (0.0-8.0); HEMATOCRIT 27.1 % (42-54); LYMPHOCYTES % (AUTO) 8.3 % (21.0-51.0); MEAN CORPUSCULAR HEMOGLOBIN 28.2 pg (27.0-33.0); MEAN CORPUSCULAR HGB CONC 35.1 g/dL (32.0-36.0); MEAN CORPUSCULAR VOLUME 80.4 fL (79-99); MONOCYTES % (AUTO) 7.8 % (3.0-13.0); NEUTROPHILS % (AUTO) 64.7 % (40.0-77.0); PLATELET COUNT (AUTO) 193 K/uL (130-400); RED BLOOD CELL COUNT(AUTO) 3.37 MIL/uL (4.50-6.20); RED CELL DISTRIBUTION WIDTH 15.2 % (11.0-15.5)
[2018-06-30 04:34] VITALS: BP 115/74
[2018-06-30] MEDS: INSULIN HUMULIN R 100 UNIT/ML 3ML SQ SCH ×2 (06:34→11:30)
[2018-06-30] MEDS: INSULIN LISPRO 100 UNIT/ML 3ML SQ SCH ×2 (06:44→12:26)
[2018-06-30 08:00] VITALS: BP 107/70
[2018-06-30] MEDS ORDERED: BISACODYL 5 MG TABLET.DR PO PRN (08:00)
[2018-06-30] MEDS: LINAGLIPTIN 5 MG TABLET PO SCH (09:30)
[2018-06-30] MEDS: ASPIRIN 325 MG TABLET PO SCH (09:30)
[2018-06-30] MEDS: FOLIC ACID/VITAMIN B COMP W-C 1 MG CAPSULE PO SCH (09:30)
[2018-06-30] MEDS: VITAMIN E 400 UNIT CAPSULE PO SCH (09:30)
[2018-06-30] MEDS: CLOPIDOGREL BISULFATE 75 MG TAB PO SCH (09:31)
[2018-06-30] MEDS: CEPHALEXIN 500 MG CAPSULE PO SCH (09:31)
[2018-06-30] MEDS: CARVEDILOL 12.5 MG TABLET PO SCH (09:31)
[2018-06-30] MEDS: PANTOPRAZOLE SODIUM 40 MG TABLET.DR PO SCH (09:31)
[2018-06-30] MEDS: ENOXAPARIN SODIUM 100 MG/1 ML SQ SCH (09:33)
[2018-06-30 12:01] VITALS: BP 117/71
[2018-06-30] MEDS ORDERED: INSU3INS3 SQ (12:13)
[2018-06-30] MEDS ORDERED: ATOR40TA69 PO (12:13)
[2018-06-30] MEDS ORDERED: INSU200I SQ (12:13)
[2018-06-30] MEDS ORDERED: ROPI0.257 PO (12:13)
[2018-06-30] MEDS ORDERED: CLOP75TA14 PO (12:13)
[2018-06-30] MEDS ORDERED: ASPI-1012 PO (12:13)
[2018-06-30] MEDS ORDERED: CEPH500C2 PO (12:13)
[2018-06-30] MEDS ORDERED: LINA5TAB PO (12:13)
[2018-06-30] MEDS ORDERED: CARV12.580 PO (12:13)
== END 2018-06-30 13:00 | disposition home or self-care (01) | DRG 215 ==
LOC: EDH 17:56 → EDHIP 17:57 → 2DH 21:39
PROVIDERS: ADMIT Internal Medicine; ATTEND Internal Medicine
PROC: 02H633Z Insertion of Infusion Device into Right Atrium, Percutaneous Approach (ICD-10-PCS; principal; 2018-06-23)
PROC: B244ZZZ Ultrasonography of Right Heart (ICD-10-PCS; 2018-06-23)
PROC: B2141ZZ Fluoroscopy of Right Heart using Low Osmolar Contrast (ICD-10-PCS; 2018-06-23)
PROC: 5A1D70Z Performance of Urinary Filtration, Intermittent, Less than 6 Hours Per Day (ICD-10-PCS; 2018-06-24)
PROC: 5A1D70Z Performance of Urinary Filtration, Intermittent, Less than 6 Hours Per Day (ICD-10-PCS; 2018-06-25)
PROC: 02HA3RZ Insertion of Short-term External Heart Assist System into Heart, Percutaneous Approach (ICD-10-PCS; 2018-06-26)
PROC: 027034Z Dilation of Coronary Artery, One Artery with Drug-eluting Intraluminal Device, Percutaneous Approach (ICD-10-PCS; 2018-06-26)
PROC: 5A0221D Assistance with Cardiac Output using Impeller Pump, Continuous (ICD-10-PCS; 2018-06-26)
PROC: 4A023N7 Measurement of Cardiac Sampling and Pressure, Left Heart, Percutaneous Approach (ICD-10-PCS; 2018-06-26)
PROC: B2111ZZ Fluoroscopy of Multiple Coronary Arteries using Low Osmolar Contrast (ICD-10-PCS; 2018-06-26)
PROC: B2151ZZ Fluoroscopy of Left Heart using Low Osmolar Contrast (ICD-10-PCS; 2018-06-26)
PROC: 5A1D70Z Performance of Urinary Filtration, Intermittent, Less than 6 Hours Per Day (ICD-10-PCS; 2018-06-26)
PROC: 5A1D70Z Performance of Urinary Filtration, Intermittent, Less than 6 Hours Per Day (ICD-10-PCS; 2018-06-27)
DX: I21.4 Non-ST elevation (NSTEMI) myocardial infarction (principal); I50.43 Acute on chronic combined systolic (congestive) and diastolic (congestive) heart failure; N18.6 End stage renal disease; I13.2 Hypertensive heart and chronic kidney disease with heart failure and with stage 5 chronic kidney disease, or end stage renal disease; N17.9 Acute kidney failure, unspecified; T82.838A Hemorrhage due to vascular prosthetic devices, implants and grafts, initial encounter; E11.22 Type 2 diabetes mellitus with diabetic chronic kidney disease; Z95.1 Presence of aortocoronary bypass graft; I25.5 Ischemic cardiomyopathy; E78.5 Hyperlipidemia, unspecified; E11.21 Type 2 diabetes mellitus with diabetic nephropathy; E11.42 Type 2 diabetes mellitus with diabetic polyneuropathy; E11.51 Type 2 diabetes mellitus with diabetic peripheral angiopathy without gangrene; E11.65 Type 2 diabetes mellitus with hyperglycemia; Z82.0 Family history of epilepsy and other diseases of the nervous system; Z68.32 Body mass index [BMI] 32.0-32.9, adult; E66.9 Obesity, unspecified; D64.9 Anemia, unspecified; F41.9 Anxiety disorder, unspecified; Z99.2 Dependence on renal dialysis; K59.00 Constipation, unspecified; G47.00 Insomnia, unspecified; I25.10 Atherosclerotic heart disease of native coronary artery without angina pectoris; I80.9 Phlebitis and thrombophlebitis of unspecified site; Y84.1 Kidney dialysis as the cause of abnormal reaction of the patient, or of later complication, without mention of misadventure at the time of the procedure; Y92.89 Other specified places as the place of occurrence of the external cause; Z79.02 Long term (current) use of antithrombotics/antiplatelets; I44.30 Unspecified atrioventricular block; Z79.4 Long term (current) use of insulin; Z79.82 Long term (current) use of aspirin; Z83.3 Family history of diabetes mellitus; Z82.49 Family history of ischemic heart disease and other diseases of the circulatory system; Z95.5 Presence of coronary angioplasty implant and graft; Z95.810 Presence of automatic (implantable) cardiac defibrillator
CPT/HCPCS: 33990; 36415; 36558; 71045; 77001; 80048; 80053; 80061; 80339; 82040; 82550; 82728; 82948; 83036; 83540; 83550; 83735; 83874; 83880; 84100; 84484; 84520; 84550; 85025; 85027; 85378; 85610; 85730; 86701; 86704; 86706; 87340; 87390; 87520; 90935; 93005; 93306; 93459; 93970; 99156; 99157; 99291; C1725; C1750; C1760; C1769; C1884; C1887; C1894; C9604; J0583; J1327; J1644; J1650; J1815; J1940; J2250; J2597; J2704; J3010; J3490; J7030; P9046; Q9967

== ENCOUNTER 2018-09-11 08:44 | Emergency (ER) | payer OTHER ==
[~2018-09-11 08:44] MED LIST changes: -AMLO10TA6 PO; +ASPI-1012 PO; -ASPI-555 PO; -ATOR10TA69 PO; +ATOR40TA69 PO; +CALC667C10 PO; +CARV12.511 PO; +CARV12.580 PO; -CARV6.25 PO; +CEPH500C2 PO; +CHOL100040 PO; -CHOL500050 PO; +FERS325 PO; -FURO40TA7 PO; -GLIP5TAB11 PO; -HYDR-4153 PO; +INSU200I SQ; -INSU200I4 SQ; +INSU3INS3 SQ; -INSU3INS5 SQ; +ISOS30TA6 PO; +LINA5TAB PO; -METO5TAB7 PO; +PREG150C PO; -PREG50 PO; -RANO500T2 PO; +ROPI0.257 PO; +VIT-7 PO; -VIT1CAPS12 PO; -VIT1TABL75 PO; +VITA400C70 PO
== END 2018-09-11 10:42 | disposition home or self-care (01) ==
LOC: EDH 08:44
DX: Z04.1 Encounter for examination and observation following transport accident (principal); N18.6 End stage renal disease; V49.40XA Driver injured in collision with unspecified motor vehicles in traffic accident, initial encounter; Y93.89 Activity, other specified; Y92.89 Other specified places as the place of occurrence of the external cause; Y99.8 Other external cause status
CPT/HCPCS: 71045

== ENCOUNTER → 2019-02-04 | Outpatient (CLI) | payer MEDICARE, OTHER | END | disposition home or self-care (01) | LOC: SHCH 10:54 | PROVIDERS: ATTEND Internal Medicine Cardiovascular Disease | DX: I13.0 Hypertensive heart and chronic kidney disease with heart failure and stage 1 through stage 4 chronic kidney disease, or unspecified chronic kidney disease (principal); E11.22 Type 2 diabetes mellitus with diabetic chronic kidney disease; I50.9 Heart failure, unspecified; N18.9 Chronic kidney disease, unspecified; I07.1 Rheumatic tricuspid insufficiency; Z95.810 Presence of automatic (implantable) cardiac defibrillator | CPT/HCPCS: 93306 ==

== ENCOUNTER → 2020-07-27 | Outpatient (CLI) | payer MEDICARE ==
[~2020-07-27] MED LIST changes: +VITA-164 PO; -VITA400C70 PO
== END | disposition home or self-care (01) ==
LOC: SHCH 14:44
PROVIDERS: ATTEND Internal Medicine Cardiovascular Disease
DX: I73.9 Peripheral vascular disease, unspecified (principal)
CPT/HCPCS: 93922